=== PATIENT | female | born 1995 | race African-American/Black ===

== ENCOUNTER 2020-02-21 16:17 | Emergency (ER) | payer OTHER ==
[~2020-02-21] VITALS: Ht 154.9 cm; Wt 86.4 kg
[2020-02-21 17:10] VITALS: BP 148/81
--- NOTE | 2020-02-21 17:37 | PHYS DOC ---
Past History Past Medical History: No Pertinent History (LIZZETH PHAM MD) Past Surgical History: Other (LIZZETH PHAM MD) Alcohol Use: None (LIZZETH PHAM MD) General Adult EDM: Chief Complaint: MECHANICAL FALL HPI: HPI: 24-year-old female with low back pain that radiates down to her left thigh and knee. 4 days ago she was pulling a tent and fell onto her back with her leg bent to the side. Did not have much pain at the time but the pain has been getting worse and cramping more. No other injuries, no paresthesias. Has a history of surgery on her left knee in the past. No history of chronic back pain, no changes in urination or hematuria (LIZZETH PHAM MD) Review of Systems: Review of Systems: Constitutional: Denies fever or chills Eyes: Denies change in visual acuity HENT: Denies nasal congestion or sore throat Respiratory: Denies cough or shortness of breath Cardiovascular: Denies chest pain or edema GI: Denies abdominal pain, nausea, vomiting, bloody stools or diarrhea : Denies dysuria Musculoskeletal: Denies back pain or joint pain Integument: Denies rash Neurologic: Denies headache, focal weakness or sensory changes Endocrine: Denies polyuria or polydipsia Lymphatic: Denies swollen glands Psychiatric: Denies depression or anxiety (LIZZETH PHAM MD) Heart Score: Risk Factors: Risk Factors: DM, Current or recent (<one month) smoker, HTN, HLP, family history of CAD, obesity. Risk Scores: Score 0 - 3: 2.5% MACE over next 6 weeks - Discharge Home Score 4 - 6: 20.3% MACE over next 6 weeks - Admit for Clinical Observation Score 7 - 10: 72.7% MACE over next 6 weeks - Early Invasive Strategies (LIZZETH PHAM MD) Allergies: Allergies: Allergies Coded Allergies Type Severity Reaction Last Updated Verified No Known Drug Allergies 02/21/20 No (LIZZETH PHAM MD) Physical Exam: PE: Constitutional: Well developed, well nourished, no acute distress, non-toxic appearance. [] HENT: Normocephalic, atraumatic, bilateral external ears normal, oropharynx moist, no oral exudates, nose normal. [] Eyes: PERRLA, EOMI, conjunctiva normal, no discharge. [] Neck: Normal range of motion, no tenderness, supple, no stridor. [] Cardiovascular:Heart rate regular rhythm, no murmur [] Lungs & Thorax: Bilateral breath sounds clear to auscultation [] Abdomen: Bowel sounds normal, soft, no tenderness, no masses, no pulsatile masses. [] Skin: Warm, dry, no erythema, no rash. [] Back: No tenderness, no CVA tenderness. [] Extremities: No tenderness, no cyanosis, no clubbing, ROM intact, no edema. [] Neurologic: Alert and oriented X 3, normal motor function, normal sensory f unction, no focal deficits noted. [] Psychologic: Affect normal, judgement normal, mood normal. [] (LIZZETH PHAM MD) Current Patient Data: Vital Signs: Vital Signs Date Time Temp Pulse Resp B/P (MAP) Pulse Ox O2 Delivery O2 Flow Rate FiO2 02/21/20 17:10 98.0 82 18 148/81 (103) 100 (LIZZETH PHAM MD) EKG: EKG: [] (LIZZETH PHAM MD) Radiology/Procedures: Radiology/Procedures: [] (LIZZETH PHAM MD) Impressions: Exam: Left knee 3 views INDICATION: Fall, history of meniscus surgery TECHNIQUE: Frontal, lateral and oblique views of the left knee Comparisons: None FINDINGS: Chronic fracture deformity at the proximal tibia and fibula. Bone mineralization is normal. No acute fractures seen. There is a small suprapatellar effusion. Joint spaces are well-maintained. IMPRESSION: No acute osseous abnormality. Electronically signed by: Salazar Haddad MD (02/21/2020 7:33 PM) [id number] DICTATED AND SIGNED BY: SALAZAR HADDAD MD DATE: 02/21/20 193 CC: LIZZETH PHAM MD; ANSHUL SOOD DO; PCP,NO ~ Exam: Lumbar spine 3 views INDICATION: Fall TECHNIQUE: Frontal, lateral views of the lumbar spine with spot magnification view of the lumbosacral junction. Comparisons: None FINDINGS: Vertebral body heights and alignment are well-maintained. No significant spondylotic changes lumbar spine. Visualized soft tissues are unremarkable. IMPRESSION: Unremarkable lumbar spine radiographs. Electronically signed by: Salazar Haddad MD (02/21/2020 7:34 PM) [id number] DICTATED AND SIGNED BY: SALAZAR HADDAD MD DATE: 02/21/20 193 CC: LIZZETH PHAM MD; ANSHUL SOOD DO; PCP,JESSICA ~ (ANSHUL SOOD DO) Course & Med Decision Making: Course & Med Decision Making Care transitioned at shift change, pending imaging [] (LIZZETH PHAM MD) Course & Med Decision Making The patient's x-rays are negative for acute findings. She does have chronic fractures of the tibia and fibula. Patient is aware of this. I believe this should improve with rest in a couple of days. If not I have advised that she follow-up with orthopedics at home. She is going back to [place] tomorrow. She is stable for discharge at this time. (ANSHUL SOOD DO) Dragon Disclaimer: Dragon Disclaimer: This electronic medical record was generated, in whole or in part, using a voice recognition dictation system. (LIZZETH PHAM MD) Departure Departure: Impression: Primary Impression: Knee pain, left Qualified Codes: M25.562 - Pain in left knee Additional Impression: Lumbar strain Qualified Codes: S39.012A - Strain of muscle, fascia and tendon of lower back, initial encounter Disposition: 01 DC HOME SELF CARE/HOMELESS Condition: STABLE Referrals: PCP,JESSICA (PCP) Patient Instructions: Knee Pain, [id number], Low Back Sprain with Rehab- [facility] LIZZETH PHAM MD Feb 21, 2020 17:37 ANSHUL SOOD DO Feb 21, 2020 20:00
[2020-02-21 18:20] LABS: BILIRUBIN,URINE NEG (NEG); CLARITY,URINE CLEAR; COLOR,URINE STRAW; GLUCOSE,URINE NEG (NEG); NITRITE,URINE NEG (NEG); U PREG PATIENT NEGATIVE (NEG); UROBILINOGEN,URINE 0.2 mg/dL (0.2 mg/dL)
[2020-02-21 18:38] LABS: BACTERIA,URINE 0 /HPF (0-FEW); RBC,URINE RARE /HPF (0-2); WBC,URINE OCC /HPF (0-4)
[2020-02-21 18:39] LABS: SQUAMOUS EPITHELIAL CELL,UR OCC /LPF
--- NOTE | 2020-02-21 19:36 | RAD ---
Exam: Left knee 3 views INDICATION: Fall, history of meniscus surgery TECHNIQUE: Frontal, lateral and oblique views of the left knee Comparisons: None FINDINGS: Chronic fracture deformity at the proximal tibia and fibula. Bone mineralization is normal. No acute fractures seen. There is a small suprapatellar effusion. Joint spaces are well-maintained. IMPRESSION: No acute osseous abnormality. Electronically signed by: Salazar Nieves MD (02/21/2020 7:33 PM) [id number]
--- NOTE | 2020-02-21 19:37 | RAD ---
Exam: Lumbar spine 3 views INDICATION: Fall TECHNIQUE: Frontal, lateral views of the lumbar spine with spot magnification view of the lumbosacral junction. Comparisons: None FINDINGS: Vertebral body heights and alignment are well-maintained. No significant spondylotic changes lumbar spine. Visualized soft tissues are unremarkable. IMPRESSION: Unremarkable lumbar spine radiographs. Electronically signed by: Salazar Nieves MD (02/21/2020 7:34 PM) [id number]
== END 2020-02-21 20:00 | disposition home or self-care (01) ==
LOC: ER 16:17
DX: S39.012A Strain of muscle, fascia and tendon of lower back, initial encounter (principal); M25.562 Pain in left knee; W18.39XA Other fall on same level, initial encounter; Y93.89 Activity, other specified; Y92.89 Other specified places as the place of occurrence of the external cause; Y99.8 Other external cause status
CPT/HCPCS: 72100; 73562; 81001; 81025; 99284